=== PATIENT | female | born 1950 ===

== ENCOUNTER 2024-08-24 11:43 | Inpatient (IN) | payer OTHER ==
[~2024-08-24] VITALS: Ht 160 cm; Wt 78.5 kg
[~2024-08-24 11:43] MED LIST: ACETAMINOPHEN-1 EAC2 PO; CARAFATE1 GM PO; COLACE100 MG PO; COZAAR100 MG PO; MEDROLPACK PO; NIFEDIPINE ER30 MG PO
[2024-08-28] MEDS ORDERED: 0.9 % SODIUM CHLORIDE 1,000 ML IV SCH (10:45)
[2024-08-28] MEDS ORDERED: PROMETHAZINE HCL 50 MG/ML AMPUL IM PRN (10:45)
[2024-08-28] MEDS ORDERED: ENALAPRILAT DIHYDRATE 1.25 MG/ML VIAL IV PRN (10:45)
[2024-08-28] MEDS ORDERED: MEDROLPACK PO (10:46)
[2024-08-28] MEDS ORDERED: PERCOCET 5-3251 EACH PO (10:46)
[2024-08-28] MEDS ORDERED: GABAPENTIN100 M2 PO (10:47)
[2024-08-28] MEDS ORDERED: AMOX-CLAV 875-1 EACH PO (10:47)
[2024-08-28] MEDS ORDERED: ZOFRAN8 MG PO (10:47)
[2024-08-28] MEDS ORDERED: COLACE100 MG PO (10:47)
[2024-08-28] MEDS ORDERED: NEURONTIN800 MG PO (10:48)
[2024-08-28] MEDS ORDERED: CEFAZOLIN SODIUM 1,000 MG VIAL ONE ×2 (11:26→15:45)
[2024-08-28] MEDS ORDERED: DOCUSATE SODIUM 100MG CAP PO SCH (13:00)
[2024-08-28] MEDS ORDERED: MORPHINE SULFATE 4 MG/ML CARTRIDGE IV SCH (13:00)
[2024-08-28] MEDS ORDERED: VANCOMYCIN HCL 1,000 MG VIAL IV ONE (13:15)
[2024-08-28] MEDS ORDERED: VANCOMYCIN HCL 1,000 MG VIAL IR ONE (13:15)
[2024-08-28] MEDS ORDERED: METHYLPREDNISOLONE SOD SUCC 125 MG VIAL IV ONE (13:15)
[2024-08-28] MEDS ORDERED: METHYLPREDNISOLONE ACETATE 80 MG/ML VIAL IM ONE (13:15)
[2024-08-28] MEDS ORDERED: HEMOSTATIC MATRIX WITH THROMBIN KIT TOP ONE (13:43)
[2024-08-28] MEDS ORDERED: MORPHINE SULFATE 4 MG/ML VIAL IV ONE ×2 (15:35→16:05)
[2024-08-28] MEDS ORDERED: METHYLPREDNISOLONE SOD SUCC 125 MG VIAL ONE (15:46)
[2024-08-28] MEDS ORDERED: METHYLPREDNISOLONE SOD SUCC 125 MG VIAL IV SCH (17:00)
[2024-08-28] MEDS ORDERED: FAMOtidine 20 MG TABLET PO SCH (17:00)
[2024-08-28] MEDS ORDERED: CEFAZOLIN SODIUM 1,000 MG in 0.9 % SODIUM CHLORIDE 50 ML IV SCH (17:00)
[2024-08-28] MEDS ORDERED: ACETAMINOPHEN 500 MG GEL..CAP PO SCH (20:00)
[2024-08-28] MEDS ORDERED: VANCOMYCIN HCL 1,000 MG VIAL IV SCH (21:00)
[2024-08-28] MEDS ORDERED: GABAPENTIN 800 MG TABLET PO SCH (21:00)
[2024-08-28 21:22] VITALS: O2SAT 97
[2024-08-28] MEDS ORDERED: VANCOMYCIN HCL 1,000 MG VIAL ONE (21:53)
[2024-08-29] VITALS (9 sets, daily range): BP systolic 108–132; BP diastolic 47–76; O2SAT 90–99
[2024-08-29] MEDS ORDERED: SODIUM CHLORIDE 0.45 % 1,000 ML IV SCH
[2024-08-29] MEDS ORDERED: OxyCODONE HCL 5 MG TABLET (ROXICODONE) PO PRN (06:01)
[2024-08-29] MEDS ORDERED: VANCOMYCIN HCL 1,000 MG VIAL ONE ×2 (06:59→15:46)
[2024-08-29 07:44] LABS: HEMATOCRIT 38.4 % (36.0-45.00); HEMOGLOBIN 13.2 g/dL (12.0-15.00); MEAN CELL VOLUME 90.5 fL (80.00-100.00); MEAN CORPUSCULAR HGB CONC 34.3 g/dl (32.0-36.0); PLATELET COUNT 199 K/uL (150-450); RED BLOOD COUNT 4.25 M/uL (4.00-6.00); RED CELL DISTRIBUTION WIDTH 12.5 % (11.5-14.5)
[2024-08-29 08:08] LABS: CALCIUM 8.3 mg/dL (8.5-10.1); CREATININE SERUM 0.65 mg/dL (0.55-1.02); GFR 89.6; POTASSIUM 4.28 mEq/L (3.5-5.1)
[2024-08-29] MEDS ORDERED: TAMSULOSIN HCL 0.4 MG CAP PO SCH (09:00)
[2024-08-29] MEDS ORDERED: LOSARTAN POTASSIUM 100 MG TABLET PO SCH (09:00)
[2024-08-29] MEDS ORDERED: NIFEDIPINE 30 MG TAB.SA.OSM PO SCH (09:00)
[2024-08-30] VITALS: O2SAT 96
[2024-08-30 03:21] VITALS: BP 94/50
[2024-08-30 05:00] VITALS: O2SAT 98
[2024-08-30 08:45] VITALS: BP 118/56
[2024-08-30 09:15] VITALS: O2SAT 99
== END 2024-08-30 16:31 | DRG 428 ==
LOC: O/R 08-28 05:48 → SURH 08-28 05:48
PROVIDERS: ADMIT Orthopaedic Surgery Orthopaedic Surgery of the Spine; ATTEND Orthopaedic Surgery Orthopaedic Surgery of the Spine
PROC: 0SG10K1 Fusion of 2 or more Lumbar Vertebral Joints with Nonautologous Tissue Substitute, Posterior Approach, Posterior Column, Open Approach (ICD-10-PCS; 2024-08-28)
PROC: 0QB30ZZ Excision of Left Pelvic Bone, Open Approach (ICD-10-PCS; 2024-08-28)
PROC: 0ST20ZZ Resection of Lumbar Vertebral Disc, Open Approach (ICD-10-PCS; 2024-08-28)
PROC: 07DR0ZZ Extraction of Iliac Bone Marrow, Open Approach (ICD-10-PCS; 2024-08-28)
PROC: 4A1104G Monitoring of Peripheral Nervous Electrical Activity, Intraoperative, Open Approach (ICD-10-PCS; 2024-08-28)
PROC: 4A12X4Z Monitoring of Cardiac Electrical Activity, External Approach (ICD-10-PCS; 2024-08-28)
PROC: XRGC0R7 Fusion of 2 or more Lumbar Vertebral Joints using Custom-Made Anatomically Designed Interbody Fusion Device, Open Approach, New Technology Group 7 (ICD-10-PCS; principal; 2024-08-28 10:30)
DX: M51.360 Other intervertebral disc degeneration, lumbar region with discogenic back pain only (principal); M48.062 Spinal stenosis, lumbar region with neurogenic claudication; M41.56 Other secondary scoliosis, lumbar region; I10 Essential (primary) hypertension